=== PATIENT | female | born 1980 | race Caucasian/White ===

== ENCOUNTER 2016-08-25 20:28 | Emergency (ER) | payer OTHER ==
[~2016-08-25] VITALS: Ht 163.8 cm; Wt 94.3 kg
[~2016-08-25 20:28] MED LIST: ATIVAN0.5 MG PO; IBU-8800 MG PO; NEXIUM 40MG40 MG PO; PERCOCET 325 MG1 TA2 PO
[2016-08-25 21:28] LABS: ABSOLUTE BASOPHIL COUNT 0.1 /CUMM (0.0-0.2); ABSOLUTE EOSINOPHIL COUNT 0.2 /CUMM (0.0-0.7); ABSOLUTE GRANULOCYTE CT 4.4 /CUMM (1.4-6.5); ABSOLUTE LYMPH COUNT 3.6 /CUMM (1.2-3.4); ABSOLUTE MONOCYTE COUNT 0.5 /CUMM (0.10-0.60); BASOPHIL % 0.6 % (0.0-2.0); EOSINOPHIL % 2.5 % (0-5); GRANULOCYTE % 50.1 % (42.2-75.2); HEMATOCRIT 37.7 % (37-47); MEAN CORPUSCULAR HGB 29.2 PG (27.0-31.0); MEAN CORPUSCULAR HGB CONC 33.6 G/DL (33.0-37.0); MEAN PLATELET VOLUME 7.4 FL (7.4-10.4); PLATELET COUNT 252 /CUMM (130-400); RBC DISTRIBUTION WIDTH 12.9 % (11.5-14.5); RED BLOOD CELL CT 4.33 /CUMM (4.20-5.40); WHITE BLOOD CELL COUNT 8.8 /CUMM (4.8-10.8)
--- NOTE | 2016-08-25 23:16 | ED GENERAL ADULT ---
History of Present Illness General Chief Complaint: General Adult Stated Complaint: "WATER RETENTION IN FEET,DIZZINES,CP" Source: patient Exam Limitations: no limitations Vital Signs & Intake/Output Vital Signs & Intake/Output Vital Signs Date Time Temp Pulse Resp B/P B/P Pulse O2 O2 Flow FiO2 Mean Ox Delivery Rate 08/25 2334 97.3 82 20 136/90 98 Room Air 08/25 2108 97.4 90 18 148/85 96 Room Air Allergies Coded Allergies: NO KNOWN ALLERGIES (12/28/11) Reconcile Medications Esomeprazole (Nexium) 40 MG CAP 1 CAP PO DAILY GI (Reported) Furosemide (Lasix) 20 MG TABLET 1 TAB PO DAILY SWELLING Ibuprofen (Ibu-8) 800 MG TAB 1 TAB PO TID PRN KNEE PAIN Lorazepam (Ativan) 0.5 MG TAB 1 TAB PO TID PRN ANXIETY (Reported) OXYCODONE HCL/ACETAMINOPHEN (Percocet 5-325 MG Tablet) 325 MG/5 MG TAB 1 TAB PO PRN PAIN (Reported) Triage Note: 36 YEAR OLD FEMALE STATES THAT FOR THE PAST 2 MONTHS HER BILATERAL FEET KEEP SWELLING UP, DENIES SOB, BUT STTAES THAT SHE WAS DIZZY EARLIER. NSR ON MONITOR. ALSO STATES THAT SHE HAS HAD INTERMITTANT HEADACHES FOR THE PAST WEEK. ALSO COMPLAINS OF BURNING WITH URINATION. Triage Nurses Notes Reviewed? yes Onset: Gradual Duration: week(s):, waxing and waning Timing: recent history Injury Environment: home Severity: mild Modifying Factors: Improves With: rest. Associated Symptoms: lower extremity swelling : No Patient currently breastfeeds: No HPI: 36 yo woman, h/o anxiety and panic attacks, with several weeks of lower extremity swelling, symmetric. "I've had it for a long time... I got to bed and my legs get skinny again by the morning... but at the end of the day my legs get swollen." She has no shortness of breath, wheezing, weight gain or loss. She is otherwise well. Past History Travel History Traveled to [place] past 21 day No Medical History Any Pertinent Medical History? 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 No Review of Systems Review of Systems Constitutional: Reports: no symptoms. EENTM: Reports: no symptoms. Respiratory: Reports: no symptoms. Cardiovascular: Reports: no symptoms. GI: Reports: no symptoms. Genitourinary: Reports: no symptoms. Musculoskeletal: Reports: no symptoms. Skin: Reports: no symptoms. Neurological/Psychological: Reports: no symptoms. Hematologic/Endocrine: Reports: no symptoms. Immunologic/Allergic: Reports: no symptoms. All Other Systems: Reviewed and Negative Physical Exam Physical Exam General Appearance: well developed/nourished, no apparent distress Head: atraumatic, normal appearance Eyes: Bilateral: normal appearance. Ears, Nose, Throat: normal pharynx, normal ENT inspection Neck: normal inspection, supple, full range of motion Respiratory: normal breath sounds, chest non-tender, no respiratory distress, quiet respiration, lungs clear Cardiovascular: regular rate/rhythm Gastrointestinal: normal bowel sounds, soft, non-tender, no organomegaly Back: normal inspection, normal range of motion Extremities: normal inspection, normal capillary refill, normal range of motion, 1+ symmetrical edema. negative ta's sign. Neurologic/Psych: no motor/sensory deficits, awake, alert, oriented x 3 Skin: intact, normal color, warm/dry Core Measures ACS in differential dx? No CVA/TIA Diagnosis: No Severe Sepsis Present: No Septic Shock Present: No Progress Differential Diagnoses I considered the following diagnoses in my evaluation of the patient: symmetrical /dependent edema... I doubt chf. Plan of Care: Orders Procedure Date/time Status URINALYSIS 08/26 2111 Complete TROPONIN LEVEL 08/26 2111 Complete COMPREHENSIVE METABOLIC PANEL 08/26 2111 Complete CBC WITHOUT DIFFERENTIAL 08/26 2111 Complete EKG 08/25 2030 Active Laboratory Tests 08/25/162152: Urine Color YEL, Urine Clarity CLEAR, Urine pH 5.5, Ur Specific Powers >= 1.030 , Urine Protein TRACE H, Urine Ketones NEG, Urine Nitrite NEG, Urine Bilirubin NEG, Urine Urobilinogen 0.2, Ur Leukocyte Esterase NEG, Ur Microscopic SEDIMENT EXAMINED, Urine RBC 1-3, Ur Epithelial Cells FEW, Urine Bacteria FEW H, Urine Mucus FEW, Urine Hemoglobin TRACE-INTACT, Urine Glucose NEG 08/25/162116: Anion Gap 15, Estimated GFR > 60, BUN/Creatinine Ratio 20.0, Glucose 117 H, Calcium 10.0, Total Bilirubin 0.4, AST 50 H, ALT 108 H, Alkaline Phosphatase 55, Troponin I < 0.01, Total Protein 7.5, Albumin 4.6, Globulin 2.9, Albumin/ Globulin Ratio 1.6, CBC w Diff NO MAN DIFF REQ, RBC 4.33, MCV 87.0, MCH 29.2, RDW 12.9, MPV 7.4, Gran % 50.1, Lymphocytes % 41.1, Monocytes % 5.7, Eosinophils % 2.5, Basophils % 0.6, Absolute Granulocytes 4.4, Absolute Lymphocytes 3.6 H, Absolute Monocytes 0.5, Absolute Eosinophils 0.2, Absolute Basophils 0.1, PUBS MCHC 33.6 Initial ED EKG: normal axis, normal intervals, normal p-waves, normal QRS complex, normal sinus rhythm Departure Departure Disposition: HOME OR SELF CARE Condition: Stable Clinical Impression Primary Impression: Dependent edema Referrals: GEOVANNA RODGERS MD (PCP/Family) Departure Forms: Customer Survey General Discharge Information Prescriptions: Current Visit Scripts Furosemide (Lasix) 1 TAB PO DAILY #4 TAB Comments benign exam... pt will give trial of tiera bandages at night and a few days of lasix... close follow up with pmd encouraged. Critical Care Note Critical Care Note Critical Care Time: non-applicable
[2016-08-25] MEDS ORDERED: LASIX20 M1 PO (23:49)
[2016-08-26 00:47] VITALS: BP 142/90
== END 2016-08-26 01:52 ==
LOC: ERH 20:28
PROVIDERS: Emergency Medicine
DX: R60.9 Edema, unspecified (principal)
CPT/HCPCS: 81001; 93005; 93010